=== PATIENT | male | born 1975 | race American Indian/Alaskan Native ===

== ENCOUNTER 2017-12-22 06:04 | Emergency (ER) | payer OTHER ==
[2017-12-22] MEDS ORDERED: NACL 0.9% 1000 ML 1,000 ML IV ONE ×2 (06:57→08:31)
[2017-12-22] MEDS ORDERED: TORADOL ONE (06:58)
[2017-12-22] MEDS ORDERED: TORADOL IV ONE (07:23)
[2017-12-22 07:41] LABS: Basophils % (Auto) 0.4 % (0.0-1.8); Eosinophils % (Auto) 0.4 % (0.0-4.3); Hematocrit 44.2 % (35.5-45.6); Hemoglobin 15.1 gm/dl (11.8-15.2); Lymphocytes # (Auto) 1.6 K/mm3 (1.2-5.4); Lymphocytes % (Auto) 16.9 % (13.4-35.0); Mean Corpuscular HGB Conc 34 % (32-34); Mean Corpuscular Hemoglobin 29 pg (28-32); Mean Corpuscular Volume 86 fl (84-94); Monocytes % (Auto) 10.5 % (0.0-7.3); Platelet Count 193 K/mm3 (140-440); Red Blood Count 5.14 M/mm3 (3.65-5.03); Red Cell Distribution Width 13.7 % (13.2-15.2)
[2017-12-22 07:49] LABS: Alanine Aminotransferase 41 units/L (7-56); Albumin 4.6 g/dL (3.9-5); BUN/Creatinine Ratio 8; Blood Urea Nitrogen 9 mg/dL (9-20); Calcium 9.8 mg/dL (8.4-10.2); Hemolysis Index 10; Lipase 33 units/L (13-60)
[2017-12-22 07:54] LABS: Bacteria,Urine 1+ /HPF (Negative); Bilirubin,Urine NEG (Negative); Blood,Urine SM (Negative); Color,Urine Yellow (Yellow); Mucus,Urine 2+ /HPF; Protein,Urine <15 mg/dL mg/dL (Negative); Urobilinogen,Urine < 2.0 mg/dL (<2.0)
[2017-12-22] MEDS ORDERED: MORPHINE IV ONE (08:31)
[2017-12-22] MEDS ORDERED: ZOFRAN IV ONE (08:31)
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
[2017-12-22] MEDS ORDERED: LEVAQUIN PO ONE (10:46)
[2017-12-22] MEDS ORDERED: FLAGYL PO ONE (10:47)
[2017-12-22] MEDS ORDERED: K-DUR PO ONE (12:02)
[2017-12-22 12:46] VITALS: BP 123/87
== END 2017-12-22 12:57 | disposition home or self-care (01) ==
LOC: ED 06:04
DX: K52.9 Noninfective gastroenteritis and colitis, unspecified (principal); I10 Essential (primary) hypertension; Z90.89 Acquired absence of other organs
CPT/HCPCS: 36415; 74177; 80053; 81001; 83690; 83735; 85025; 96361; 96374; 96375; 99284; J1885; J2270; J2405; J7030; Q9967

== ENCOUNTER 2018-11-16 19:06 | Emergency (ER) | payer OTHER ==
[2018-11-16] MEDS ORDERED: ZOFRAN IV ONE (19:36)
[2018-11-16] MEDS ORDERED: DILAUDID IV ONE ×2 (19:36→21:46)
[2018-11-16] MEDS ORDERED: NACL 0.9% 1000 ML 1,000 ML IV ONE (19:38)
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
[2018-11-16 20:10] LABS: Basophils # (Auto) 0.1 K/mm3 (0.0-0.1); Basophils % (Auto) 0.6 % (0.0-1.8); Eosinophils # (Auto) 0.1 K/mm3 (0.0-0.4); Eosinophils % (Auto) 0.4 % (0.0-4.3); Hematocrit 45.6 % (35.5-45.6); Hemoglobin 15.2 gm/dl (11.8-15.2); Lymphocytes # (Auto) 1.5 K/mm3 (1.2-5.4); Lymphocytes % (Auto) 10.3 % (13.4-35.0); Mean Corpuscular HGB Conc 33 % (32-34); Mean Corpuscular Volume 90 fl (84-94); Monocytes # (Auto) 0.9 K/mm3 (0.0-0.8); Monocytes % (Auto) 6.3 % (0.0-7.3); Platelet Count 169 K/mm3 (140-440); Red Cell Distribution Width 14.3 % (13.2-15.2)
[2018-11-16 20:28] LABS: INR 1.04 (0.87-1.13); Partial Thromboplastin Time 25.3 Sec. (24.2-36.6)
[2018-11-16 20:36] LABS: Creatine Kinase MB 6.2 ng/mL (0.0-4.0)
[2018-11-16 20:37] LABS: Alanine Aminotransferase 62 units/L (7-56); Albumin 4.7 g/dL (3.9-5); BUN/Creatinine Ratio 8; Blood Urea Nitrogen 10 mg/dL (9-20); Calcium 9.4 mg/dL (8.4-10.2); Hemolysis Index 8
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
[2018-11-16 23:40] VITALS: BP 123/77
== END 2018-11-17 01:04 | disposition other institution (70) ==
LOC: ED 19:06
DX: S22.42XA Multiple fractures of ribs, left side, initial encounter for closed fracture (principal); S09.90XA Unspecified injury of head, initial encounter; J93.9 Pneumothorax, unspecified; V47.0XXA Car driver injured in collision with fixed or stationary object in nontraffic accident, initial encounter; Y93.89 Activity, other specified; Y92.488 Other paved roadways as the place of occurrence of the external cause; Y99.8 Other external cause status
CPT/HCPCS: 36415; 70450; 71275; 72125; 74177; 80053; 82550; 82553; 84484; 85025; 85610; 85730; 86850; 86900; 86901; 93005; 93010; 96374; 96375; 96376; 99285; J1170; J2405; J7030; Q9967